=== PATIENT | male | born 2000 | race Caucasian/White ===

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

== ENCOUNTER 2022-12-16 21:07 | Emergency (ER) | payer MEDICAID, SELFPAY ==
[2022-12-16 21:11] VITALS: BP 121/80; PULSE 84; RESP 18; TEMP 36.8; O2SAT 98; BMI 19.2
[2022-12-16] MEDS: diphenhydrAMINE HCL 25 MG CAPSULE 50 MG PO (23:29)
[2022-12-16] MEDS: predniSONE 20 MG TABLET PO (23:29)
--- NOTE | 2022-12-16 23:33 | PC.NURSE ---
This bid writer assumed care of this Pt at 2300. Pt A&Ox4, denies any pain, reports feeling itchy after eating watermelon, Pt reports eating watermelon in the past with no reaction. Pt denies SOB, or CP. Lung sounds clear. Pt medicated per SEP. Will CTM.
[2022-12-17 00:06] VITALS: BP 112/66; PULSE 76; RESP 16; TEMP 36.4; O2SAT 97
--- NOTE | 2022-12-17 01:11 | ED_ITS ---
HPI - Allergic Reaction General Chief complaint: Allergic Reaction Stated complaint: Allergic reaction?/ Rash all over body Time Seen by Provider: 12/16/22 22:42 Source: patient and family (Father) Mode of arrival: ambulatory Limitations: no limitations History of Present Illness HPI narrative: 22-year-old male came in for evaluation of diffuse rash and itching. Patient declined any change in his daily routine. Declined any change of voice or difficulty breathing able to swallow normally. Related Data Previous Rx's Medication Instructions Recorded prednisone 20 mg tablet 20 mg PO BID #10 tabs 12/17/22 Allergies Allergy/AdvReac Type Severity Reaction Status Date / Time watermelon Allergy Hives Verified 12/16/22 21:16 Review of Systems Review of Systems: All other systems are reviewed and are negative Constitutional: Reports as per HPI and Reports no additional constitutional complaints Eyes: Reports as per HPI and Reports no additional eye complaints Reports system reviewed and no additional complaints, except as documented Cardiovascular: Reports as per HPI and Reports no additional cardiovascular complaints Respiratory: Reports as per HPI and Reports no additional respiratory complaints Gastrointestinal: Reports as per HPI and Reports no additional gastrointestinal complaints Genitourinary: Reports no additional female genitourinary complaints Musculoskeletal: Reports no additional musculoskeletal complaints Skin/Breast: Reports system reviewed and no additional complaints, except as docu Psychiatric: Reports no additional psychiatric complaints Endocrine: Reports no additional endocrine complaints Hematologic/Lymphatic: Reports no additional hematologic/lymphatic complaints Allergic/Immunologic: Reports no additional allergic/immunologic complaints Reports system reviewed and no additional complaints, except as documented and Reports Abnormal speech present [facility] Social History Social History Alcohol intake: never Smoked in Last 30 Days: No Use of substances other than those prescribed or required for medical reasons: No Advance Directives: No Advance Directives Information Provided: No Physical Exam ED Vital Signs: Vital Signs - 24 hr 12/16/22 21:11 12/17/22 00:06 Temperature 98.3 F 97.6 F Pulse Rate 84 76 Respiratory Rate 18 16 Blood Pressure 121/80 112/66 Pulse Oximetry 98 97 Oxygen Delivery Method Room Air Room Air BMI result Body Mass Index 19.2 Vital signs have been reviewed as appeared to be correct. Blood pressure normal. Heart rate normal. Respiration rate normal. Temperature normal. Oxygen saturation normal. Appearance: Alert. Oriented X3. No acute distress. Head: Normal external exam. Normocephalic. Atraumatic. No Jane signs noted. No raccoon eyes noted Eyes: PERRLA. EOMI. Conjunctiva and sclera normal. Eyelids normal. ENT: TM's Normal. Pharynx normal. Uvula midline. Moist mucous membranes. No trismus noted. No drooling noted. No muffled voice noted, patent airway with no stridor. Neck: Normal inspection. Neck supple. FROM. No adenopathy. Thyroid Normal. No meningeal signs. No neck mass noted. CVS: Normal heart rate and rhythm. Heart sound normal. No murmurs noted. Pulses normal throughout. Respiratory: No respiratory distress. Painless inspiration. Breath sounds normal. No wheezes/rales/rhonchi noted. Chest nontender. No accessory muscle usage noted or decreased air movement noted. Abdomen: Soft and nontender. Bowel sounds normal in all 4 quadrants. No distention noted. No organomegaly noted. No visible injury noted. Back: No CVA tenderness. Full range of motion noted. Skin: Skin warm and dry. Normal skin color. Normal skin turgor. Diffuse hives upper and lower extremities bilaterally, and torso Extremities: No lower extremity edema. Extremities exhibit normal range of motion. Extremities nontender. Neuro: Oriented X 3. Cranial nerve exam: II-XII are grossly intact No motor deficit. No sensory deficit. Reflexes normal. Course Course Course Narrative: Allergic reactions due to unclear underlying etiology. Patient feels better after was given a dose of prednisone in emergency department and [facility]. Will start the patient on prednisone for 5 days. Medications Administered Discontinued Medications Generic Name Dose Route Start Last Admin Trade Name Freq PRN Reason Stop Dose Admin Diphenhydramine HCl 50 mg 12/16/22 23:25 12/16/22 23:29 Diphenhydramine Hcl 25 Mg Capsule PO 12/16/22 23:26 50 mg ONCE ONE Administration Prednisone 20 mg 12/16/22 23:25 12/16/22 23:29 Prednisone 20 Mg Tablet PO 12/16/22 23:26 20 mg ONCE ONE Administration Medical Decision Making Differential Diagnosis Differential Diagnoses: The differential diagnosis associated with the presentation includes (Hives, allergic reaction, anaphylaxis.) Discharge Plan Discharge Clinical Impression: Allergic reaction, Urticaria Patient Disposition: Home, Self-Care Instructions: General Allergic Reaction (ED) Prescriptions: New prednisone 20 mg tablet 20 mg PO BID Qty: 10 0RF
--- NOTE | 2022-12-17 01:43 | PC.NURSE ---
Less redness noted to arms and trunk. Pt reports effectiveness to meds given, states less itching .
== END 2022-12-17 01:47 | disposition home or self-care (01) ==
PROVIDERS: Emergency Provider Emergency Medicine
DX: L50.0 Allergic urticaria (principal)
CPT/HCPCS: 99283; 99284